=== PATIENT | female | born 1985 | race Caucasian/White ===

== ENCOUNTER → 2024-05-02 | Outpatient (CLI) | payer OTHER ==
[~2024-05-02] VITALS: Ht 157.5 cm; Wt 72.6 kg
[~2024-05-02] MED LIST: ONE DAILY1 TA1 PO
[2024-05-02 11:26] LABS: HEMATOCRIT 42.9 % (37.0-47.0); HEMOGLOBIN 14.5 g/dL (12.5-16.0)
[2024-05-02 12:07] VITALS: BP 125/94
--- NOTE | 2024-05-02 12:11 | NUR ---
PATIENT HERE FOR THERAPEUTIC PHLEBOTOMY. LABS DRAWN PRIOR, HGB 14.5 HCT 42.9 AND FERRITIN 240. VITAL SIGNS OBTAINED. 18G IV TO LEFT AC. TIME OUT PERFORMED AT 1204. PROCEDURE STARTED AT 1206 AND COMPLETED AT 1217. 500ML REMOVED. TOLERATED PROCEDURE WELL. POST VITAL SIGNS OBTAINED.
[2024-05-02 12:21] VITALS: BP 112/74
== END ==
LOC: AMSURD 10:50
DX: E83.110 Hereditary hemochromatosis (principal)